=== PATIENT | female | born 1955 | race Caucasian/White ===

== ENCOUNTER 2021-03-30 12:31 | Emergency (ER) | payer MEDICARE ==
[~2021-03-30] VITALS: Ht 162.6 cm; Wt 48.1 kg
[2021-03-30] MEDS ORDERED: BENZTROPINE MESYLATE 2 MG/2 ML VIAL. IM STA (13:17)
--- NOTE | 2021-03-30 13:25 | PHYS DOC ---
Past Medical History Past Medical History: Bipolar Past Surgical History: No Surgical History Smoking Status: Never Smoker Alcohol Use: None Drug Use: None General Adult EDM: Chief Complaint: TONGUE SWELLING/INJURY HPI: HPI: 65-year-old female with a history of bipolar disorder presents to the emergency department with tongue swelling, increased salivation. She reports that she had similar symptoms in the past and was treated with Cogentin. She called her psychiatrist earlier today who told her to come to the emergency department for a shot of Cogentin. She reports that she got a shot of Haldol 2 days ago which precipitated her symptoms. She believes that she may have tardive dyskinesia or movement disorder related to antipsychotics. She denies any shortness of breath, neck swelling, fever, chills, chest pain, abdominal pain. Her blood pressure is high today but she has not taken her medication. She has her blood pressure medication at home. She has no further concerns at this time. She presents with her son who corroborates the story Review of Systems: Review of Systems: Review of systems otherwise negative except for what is mentioned in the HPI Heart Score: C/O Chest Pain: No Allergies: Allergies: Allergies Coded Allergies Type Severity Reaction Last Updated Verified aripiprazole Allergy Intermediate UNKNOWN 03/30/21 Yes carbamazepine Allergy Intermediate UNKNOWN 03/30/21 Yes codeine Allergy Intermediate UNKNOWN 03/30/21 Yes duloxetine Allergy Intermediate UNKNOWN 03/30/21 Yes lithium Allergy Intermediate UNKNOWN 03/30/21 Yes quetiapine Allergy Intermediate UNKNOWN 03/30/21 Yes red dye Allergy Intermediate UNKNOWN 03/30/21 Yes venlafaxine Allergy Intermediate UNKNOWN 03/30/21 Yes Physical Exam: PE: General: No acute distress. HEENT: Normocephalic, Normal hearing. Visual acuity grossly intact. Tongue is mildly swollen, uvula midline, airway intact and there does not appear to be any phonation abnormalities with the airway completely intact Neck: Supple, Full range of motion without tenderness. Respiratory: Airway intact, normal phonation, vocalizing. No signs of accessory muscle use or respiratory distress. Cardiovascular: Normal rate, Extremities appear well perfused. Musculoskeletal: Normal range of motion. No deformity. Ambulatory. Integumentary: No pallor, No jaundice. Neurologic: Alert, Oriented. Moves all extremities independently. Psychiatric: Cooperative Current Patient Data: Vital Signs: Vital Signs Date Time Temp Pulse Resp B/P (MAP) Pulse Ox O2 Delivery O2 Flow Rate FiO2 03/30/21 13:38 71 167/73 03/30/21 12:50 98.5 82 20 182/85 99 Room Air 98.5 Course & Med Decision Making: Course & Med Decision Making Patient was given Cogentin, Toradol as per her request. She is also given amlodipine 10 mg, her home dose for blood pressure. There is no sign of endorgan damage here today. She was discharged in stable condition. Tongue swelling did not affect the airway. She was to follow-up with her psychiatrist and primary care physician and she was given referral to neurologist for movement disorder My Orders - JOSE BURK DO Procedure Category Date Status Time Benztropine Mesylate PHA 03/30/21 Complete (Cogentin) 13:17 Ketorolac 15mg Vial PHA 03/30/21 Complete (Toradol 15mg Vial) 13:30 Amlodipine Besylate PHA 03/30/21 Complete (Norvasc) 13:21 Departure Departure Impression: Primary Impression: Extrapyramidal and movement disorder, unspecified Additional Impression: Elevated blood pressure reading Disposition: 01 HOME / SELF CARE / HOMELESS Condition: STABLE Referrals: GAVIN HATCH MD (PCP) TIMMY HEREDIA MD Patient Instructions: Manic Depression (Bipolar Disorder) Additional Instructions: Please follow-up with your psychiatrist regarding her bipolar disorder, movement disorder. You should follow-up with a neurologist regarding your movement disorder. You were seen in the emergency department and your health condition was deemed not to require admission to the hospital. It is important to realize that we can only evaluate you during the time that you are in her department. Occasionally health conditions can worsen upon leaving the emergency department. If this were to happen, please return to and allow us the opportunity to reevaluate you. It is a pleasure to take care of your health needs. Return to the ER if your symptoms worsen, do not improve, or if you develop additional symptoms that are concerning to you You were seen in the emergency department for hypertension, or high blood pressure. You need to follow up with the medicine clinic or your primary care doctor for further evaluation and treatment of your blood pressure. You should return to the ED if you develop chest pain, shortness of breath, severe headache, or any other new or concerning symptoms. We started you on a low dose of blood pressure medication, but you may need more than one medication and should have a primary doctor that can further investigate your blood pressure issues. Losing some weight and improving your diet will be helpful in reducing your blood pressure as well. JOSE BURK DO Mar 30, 2021 13:25
[2021-03-30] MEDS ORDERED: KETOROLAC 15 MG/ML VIAL. IM ONE (13:30)
[2021-03-30 14:37] VITALS: BP 179/71
== END 2021-03-30 14:45 | disposition home or self-care (01) ==
LOC: ER 12:31
DX: G25.9 Extrapyramidal and movement disorder, unspecified (principal); R03.0 Elevated blood-pressure reading, without diagnosis of hypertension; F31.9 Bipolar disorder, unspecified; Z88.5 Allergy status to narcotic agent; Z91.041 Radiographic dye allergy status; Z88.8 Allergy status to other drugs, medicaments and biological substances
CPT/HCPCS: 96372; 99285; J0515; J1885

== ENCOUNTER 2021-05-07 15:43 | Emergency (ER) | payer MEDICARE ==
[~2021-05-07] VITALS: Ht 162.6 cm; Wt 62.0 kg
[2021-05-07 15:55] VITALS: BP 182/79
--- NOTE | 2021-05-07 17:09 | PHYS DOC ---
Past Medical History Past Medical History: Bipolar Additional Past Medical Histor: TARDIVE DYSKINESIA,CHRONIC PAIN Past Surgical History: No Surgical History Additional Past Surgical Histo: NASAL RECONSTRUCTION/NO SEPTUM Smoking Status: Never Smoker Alcohol Use: None Drug Use: None General Adult EDM: Chief Complaint: NECK PAIN HPI: HPI: Patient is a 65 year old female presents emergency department complaining of stiff neck for the past 3 days. 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 Review of Systems: Review of Systems: 14 body systems of review of systems have been reviewed. See HPI for pertinent positives and negative responses, otherwise all other systems are negative, nonpertinent or noncontributory. Constitutional: Negative except as outlined in HPI above. Skin: Negative except as outlined in HPI above. Eyes: Negative except as outlined in HPI above. HENT: Negative except as outlined in HPI above. Respiratory: Negative except as outlined in HPI above. Cardiovascular: Negative except as outlined in HPI above. GI: Negative except as outlined in HPI above. : Negative except as outlined in HPI above. Musculoskeletal: Negative except as outlined in HPI above. Integument: Negative except as outlined in HPI above. Neurologic: Negative except as outlined in HPI above. Endocrine: Negative except as outlined in HPI above. Lymphatic: Negative except as outlined in HPI above. Psychiatric: Negative except as outlined in HPI above. Heart Score: C/O Chest Pain: No Risk Factors: Risk Factors: DM, Current or recent (<one month) smoker, HTN, HLP, family history of CAD, obesity. Risk Scores: Score 0 - 3: 2.5% MACE over next 6 weeks - Discharge Home Score 4 - 6: 20.3% MACE over next 6 weeks - Admit for Clinical Observation Score 7 - 10: 72.7% MACE over next 6 weeks - Early Invasive Strategies Allergies: Allergies: Allergies Coded Allergies Type Severity Reaction Last Updated Verified aripiprazole Allergy Intermediate UNKNOWN 05/07/21 Yes carbamazepine Allergy Intermediate UNKNOWN 05/07/21 Yes codeine Allergy Intermediate UNKNOWN 05/07/21 Yes duloxetine Allergy Intermediate UNKNOWN 05/07/21 Yes lithium Allergy Intermediate UNKNOWN 05/07/21 Yes quetiapine Allergy Intermediate UNKNOWN 05/07/21 Yes red dye Allergy Intermediate UNKNOWN 03/30/21 Yes venlafaxine Allergy Intermediate UNKNOWN 03/30/21 Yes Physical Exam: PE: Constitutional: Well developed, well nourished, no acute distress, non-toxic appearance. 65-year-old female in no apparent distress. HENT: Normocephalic, atraumatic. Eyes: Conjunctiva normal, no discharge. Neck: Normal range of motion, no stridor. Left-sided sternocleidomastoid muscle spasm, no midline spinal tenderness appreciated Cardiovascular: No cyanosis appreciated, distal cap refill less than 2 seconds. Lungs & Thorax: Patient is in no respiratory distress, no audible adventitious lung sounds appreciated. Abdomen: Nontender, no abnormalities noted. Skin: Warm, dry, no erythema, no rash. Back: No tenderness, no deformities. Extremities: No tenderness, no cyanosis, no clubbing, ROM intact, no edema. Neurologic: Alert and oriented X 3, normal motor function, normal sensory function, no focal deficits noted. Psychologic: Affect normal, judgement normal, mood normal. Current Patient Data: Vital Signs: Vital Signs Date Time Temp Pulse Resp B/P (MAP) Pulse Ox O2 Delivery O2 Flow Rate FiO2 05/07/21 15:55 97.9 16 182/79 (113) 97 Room Air 97.9 EKG: EKG: [] Radiology/Procedures: Radiology/Procedures: [] Course & Med Decision Making: Course & Med Decision Making Pertinent Labs and Imaging studies reviewed. (See chart for details) 65-year-old female, vital signs reviewed, presents emerged from complaint of stiff neck. Physical examination consistent with torticollis/wry neck of the left side of neck, will treat with p.o. Valium, IM Toradol, discharged home with instructions for moist heat treatments 20 minutes on 20 minutes off while awake for the next 2 to 3 days, patient has prescription for muscle relaxer from primary care provider,, patient gave verbal understanding of and is amenable to ED discharge planning. Discussed with the patient all findings and diagnostic testing as well as the need to follow-up with their primary care provider for further evaluation and treatment or return to the ED if any new or worsening symptoms. Strict return precautions were also discussed at length, the patient voiced understanding and agreement with the discharge planning. The patient was nontoxic in appearance, in no apparent distress, and hemodynamically stable at the time of disposition. Dragon Disclaimer: Dragon Disclaimer: This electronic medical record was generated, in whole or in part, using a voice recognition dictation system. Departure Departure Impression: Primary Impression: Wry neck Disposition: HOME / SELF CARE / HOMELESS Condition: GOOD Referrals: GAVIN HATCH MD (PCP) Additional Instructions: You were seen today in the emergency department for a stiff neck. You were treated today with an intramuscular injection of Toradol, a value of tablet to help relax the muscles of your neck. Please continue to take [id number] Motrin and your prescribed muscle relaxer for your neck discomfort, you may use heating pad or moist heat 20 minutes on 20 minutes off while awake. Please see your doctor for ongoing pain management. Thank you for visiting our [facility]. It was a pleasure taking care of you today in the emergency department and we appreciate you trusting us with your care. If any additional problems come up don't hesitate to return to visit us. Please follow up with your primary care provider so they can plan additional care if needed and know about the problem that you had. If symptoms worsen come back to the Emergency Department. Any concerning symptoms that start such as chest pain, shortness of air, weakness or numbness on one side of the body, running high fevers or any other concerning symptoms return to the ER. KELLY SCHMITZ APRN May 07, 2021 17:09
[2021-05-07] MEDS ORDERED: KETOROLAC 60 MG/2 ML VIAL. IM ONE (17:15)
[2021-05-07] MEDS ORDERED: diazePAM 5 MG TABLET PO ONE (17:15)
== END 2021-05-07 17:53 | disposition home or self-care (01) ==
LOC: ER 15:43
DX: M43.6 Torticollis (principal); F31.9 Bipolar disorder, unspecified; G89.29 Other chronic pain; Z88.8 Allergy status to other drugs, medicaments and biological substances; Z91.041 Radiographic dye allergy status; Z88.5 Allergy status to narcotic agent
CPT/HCPCS: 96372; 99283; J1885

== ENCOUNTER 2021-07-26 12:00 | Emergency (ER) | payer MEDICARE ==
[~2021-07-26] VITALS: Ht 162.6 cm; Wt 45.8 kg
--- NOTE | 2021-07-26 12:15 | PHYS DOC ---
Past Medical History Past Medical History: Bipolar Additional Past Medical Histor: TARDIVE DYSKINESIA,CHRONIC PAIN Past Surgical History: No Surgical History Additional Past Surgical Histo: NASAL RECONSTRUCTION/NO SEPTUM Smoking Status: Never Smoker Alcohol Use: None Drug Use: None General Adult EDM: Chief Complaint: COUGH HPI: HPI: Patient is a 66 year old who presents with reported shortness of breath, chronic cough, denies sputum changes, denies hemoptysis. She also reports chronic back pain. She reports that she is out of her muscle relaxers. She denies fevers or chills. She denies abdominal pain, nausea, vomiting. She denies chest pain. She denies dyspnea with exertion. She reports that she has been "fired" from multiple facilities throughout the [place] area, by specialist as well as primary care physicians. She has reportedly been banned from these offices, secondary to aggressive and threatening behavior. She denies any recent trauma or injury. She denies lower extremity pain or swelling. She continues to smoke tobacco. She does have a history of COPD. 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 She currently is requesting information to establish care with a new primary care physician. She reports that she usually takes tizanidine for her chronic back pain. Review of Systems: Review of Systems: Constitutional: Denies fever or chills. [] Eyes: Denies change in visual acuity. [] HENT: She reports having a chronic sore throat Respiratory: Chronic and unchanged cough, denies hemoptysis. Chronic dyspnea Cardiovascular: Denies chest pain or edema. [] GI: Denies abdominal pain, nausea, vomiting Musculoskeletal: Chronic and unchanged back pain. Integument: Denies rash. [] Neurologic: Denies headache, focal weakness or sensory changes. [] Psychiatric: Chronic anxiety and mood disturbance. [] Heart Score: C/O Chest Pain: No Risk Factors: Risk Factors: DM, Current or recent (<one month) smoker, HTN, HLP, family history of CAD, obesity. Risk Scores: Score 0 - 3: 2.5% MACE over next 6 weeks - Discharge Home Score 4 - 6: 20.3% MACE over next 6 weeks - Admit for Clinical Observation Score 7 - 10: 72.7% MACE over next 6 weeks - Early Invasive Strategies Allergies: Allergies: Allergies Coded Allergies Type Severity Reaction Last Updated Verified aripiprazole Allergy Intermediate UNKNOWN 05/07/21 Yes carbamazepine Allergy Intermediate UNKNOWN 05/07/21 Yes codeine Allergy Intermediate UNKNOWN 05/07/21 Yes duloxetine Allergy Intermediate UNKNOWN 05/07/21 Yes lithium Allergy Intermediate UNKNOWN 05/07/21 Yes quetiapine Allergy Intermediate UNKNOWN 05/07/21 Yes red dye Allergy Intermediate UNKNOWN 03/30/21 Yes venlafaxine Allergy Intermediate UNKNOWN 03/30/21 Yes Physical Exam: PE: Constitutional: Well developed, well nourished, no acute distress, non-toxic appearance. She is pacing rapidly all over the ED room, briskly getting up and down from the ED gurney, restless appearing, anxious, hyperverbal, she is not ill-appearing. HENT: Normocephalic, atraumatic, oropharynx is patent and clear, mucous membranes are moist. Eyes: Sclera are clear, conjunctival clear Neck: Achy yet is midline, no tenderness, no JVD Cardiovascular:Heart rate regular rhythm, well-perfused, no edema Lungs & Thorax: Bilateral breath sounds clear to auscultation, no rales, rhonchi or wheezes, no tachypnea, no retractions, no stridor, no distress. Abdomen: Bowel sounds normal, soft, no tenderness, no masses, no pulsatile masses. [] Skin: Warm, dry, no erythema, no rash. [] Back: No tenderness, no CVA tenderness. [] Extremities: No tenderness, no cyanosis, no clubbing, ROM intact, no edema. No calf tenderness Neurologic: Alert and oriented X 3, normal motor function, normal sensory function, no focal deficits noted. [] Psychologic: Anxious, frenetic, pacing, hyperverbal, pressured speech. She denies SI or HI. [] EKG: EKG: [] Radiology/Procedures: Radiology/Procedures: IMAGING REPORT Signed PATIENT: WILLIE FELDER ACCOUNT: [id number] : 1955 LOCATION: ER AGE: 66 SEX: F EXAM STATUS: PRE ER ORD. PHYSICIAN: PATO HERNANDEZ DO REASON: cough PROCEDURE: PORTABLE CHEST 1V EXAM: Chest, single view. HISTORY: Cough. COMPARISON: None. FINDINGS: A frontal view of the chest obtained. There is hyperinflation likely due to emphysema. There is a 1.3 cm focal opacity overlying the left upper lobe. There is no consolidation, pleural effusion or pneumothorax. The heart is normal in size. There is a healed left eighth rib fracture. IMPRESSION: 1. Focal opacity overlying the left upper lobe. This may be due to a nodule or nodular infiltrate. Short-term sonographic or CT follow-up is recommended. 2. Suspected emphysema. Electronically signed by: Dorene Pacheco MD (07/26/2021 12:39 PM) [id number] DICTATED and SIGNED BY: DORENE PACHECO MD DATE: 07/26/21 [id number] Course & Med Decision Making: Course & Med Decision Making Pertinent Labs and Imaging studies reviewed. (See chart for details) The findings, differential diagnosis and plan of care are discussed with her. The patient demanded a "shot" for muscle relaxer. I did order Norflex for her. I ordered p.o. Tessalon for cough. I did discuss the x-ray findings, she is to follow-up for this left lobe area, likely nodule. She clinically does not have pneumonia. She manifests no evidence of distress or hypoxia. No current indication for further imaging, invasive exams or admission. I told her to contact and primary care physician resources to establish care, she should continue to see her psychiatrist and counselors as scheduled. Return precautions are given. Aureliano Disclaimer: Aureliano Disclaimer: This electronic medical record was generated, in whole or in part, using a voice recognition dictation system. Departure Departure Impression: Primary Impression: Cough Additional Impression: Chronic back pain Disposition: 01 HOME / SELF CARE / HOMELESS Condition: STABLE Referrals: UNKNOWN PCP NAME (PCP) Patient Instructions: Back Pain, Adult, Cough, Adult, Smoking Cessation Additional Instructions: Please continue using your inhalers as needed. Take your other regularly prescribed medications as directed. Please establish care with a primary care physician. You are given outpatient resources for this purpose. Return for any acute, emergency medical condition, such as acute injury or trauma, if your cough or shortness of breath symptoms are changed. You do not need steroids at this time. There is no need for antibiotics at this time. Scripts Tizanidine Hcl (TIZANIDINE HCL) 4 Mg Tablet 1 TAB PO BID for pain, #20 TAB Prov: PATO HERNANDEZ DO 07/26/21 Diclofenac Potassium (DICLOFENAC POTASSIUM) 50 Mg Tablet 1 TAB PO BID, #20 TAB 0 Refills Prov: PATO HERNANDEZ DO 07/26/21 PATO HERNANDEZ DO Jul 26, 2021 12:15
[2021-07-26] MEDS ORDERED: ORPHENADRINE CITRATE 60 MG/2 ML VIAL. IM ONE (12:30)
[2021-07-26] MEDS ORDERED: BENZONATATE 100 MG CAPSULE. PO ONE (12:30)
--- NOTE | 2021-07-26 12:42 | RAD ---
EXAM: Chest, single view. HISTORY: Cough. COMPARISON: None. FINDINGS: A frontal view of the chest obtained. There is hyperinflation likely due to emphysema. Ther e is a 1.3 cm focal opacity overlying the left upper lobe. There is no consolidation, pleural effusio n or pneumothorax. The heart is normal in size. There is a healed left eighth rib fracture. IMPRESSION: 1. Focal opacity overlying the left upper lobe. This may be due to a nodule or nodular infiltrate. Sh ort-term sonographic or CT follow-up is recommended. 2. Suspected emphysema. Electronically signed by: Dorene Pacheco MD (07/26/2021 12:39 PM) [id number]
[2021-07-26 14:40] VITALS: BP 165/74
[2021-07-26] MEDS ORDERED: DICL50TA2 PO (14:41)
[2021-07-26] MEDS ORDERED: TIZA-75 PO (14:41)
== END 2021-07-26 15:00 | disposition home or self-care (01) ==
LOC: ER 12:00
DX: R05.9 Cough, unspecified (principal); R06.02 Shortness of breath; G89.29 Other chronic pain; M54.9 Dorsalgia, unspecified; F31.9 Bipolar disorder, unspecified; J44.9 Chronic obstructive pulmonary disease, unspecified; Z88.5 Allergy status to narcotic agent; Z91.041 Radiographic dye allergy status; Z88.8 Allergy status to other drugs, medicaments and biological substances
CPT/HCPCS: 71045; 96372; 99284; J2360

== ENCOUNTER 2021-08-02 19:35 | Emergency (ER) | payer MEDICARE ==
[~2021-08-02 19:35] MED LIST: DICL50TA2 PO; TIZA-75 PO
== END 2021-08-03 01:59 | disposition left against medical advice (07) ==
LOC: ER 19:35
DX: R06.09 Other forms of dyspnea (principal); Z53.21 Procedure and treatment not carried out due to patient leaving prior to being seen by health care provider

== ENCOUNTER 2021-08-03 03:08 | Emergency (ER) | payer MEDICARE ==
[~2021-08-03] VITALS: Ht 162.6 cm; Wt 70.0 kg
--- NOTE | 2021-08-03 04:57 | PHYS DOC ---
Past Medical History Past Medical History: Bipolar Additional Past Medical Histor: BLOOD PRESSURE PROBLEMS, THROAT, PAIN, PTSD, NECK INJURY Past Surgical History: Other Additional Past Surgical Histo: UNKNOWN Smoking Status: Never Smoker Alcohol Use: None Drug Use: None General Adult EDM: Chief Complaint: HYPERTENSION HPI: HPI: Patient is a 66 year old FEMALE presents for evaluation of low blood pressure. Patient states yesterday morning (08/02) approximately 0800s she took her blood pressure and noted it to be 90's systolic. Patient called 911-- when ems arrived patients blood pressure 170's systolic. Patient states she went to [facility] ER and also to her pain management Doctor. On exam patient is in no acute distress. Her blood pressure is in the 150's systolic. Patient is requesting a shot of norflex- for her chronic muscle spasms. Review of Systems: Review of Systems: Constitutional: Denies fever or chills. [] Eyes: Denies change in visual acuity. [] HENT: Denies nasal congestion or sore throat. [] Respiratory: Denies cough or shortness of breath. [] Cardiovascular: Denies chest pain or edema. [] GI: Denies abdominal pain, nausea, vomiting, bloody stools or diarrhea. [] : Denies dysuria. [] Musculoskeletal: Denies back pain or joint pain. [] Integument: Denies rash. [] Neurologic: Denies headache, focal weakness or sensory changes. [] Endocrine: Denies polyuria or polydipsia. [] Lymphatic: Denies swollen glands. [] Psychiatric: Denies depression or anxiety. [] Heart Score: C/O Chest Pain: N/A Risk Factors: Risk Factors: DM, Current or recent (<one month) smoker, HTN, HLP, family history of CAD, obesity. Risk Scores: Score 0 - 3: 2.5% MACE over next 6 weeks - Discharge Home Score 4 - 6: 20.3% MACE over next 6 weeks - Admit for Clinical Observation Score 7 - 10: 72.7% MACE over next 6 weeks - Early Invasive Strategies Allergies: Allergies: Allergies Coded Allergies Type Severity Reaction Last Updated Verified aripiprazole Allergy Intermediate UNKNOWN 05/07/21 Yes carbamazepine Allergy Intermediate UNKNOWN 05/07/21 Yes codeine Allergy Intermediate UNKNOWN 05/07/21 Yes duloxetine Allergy Intermediate UNKNOWN 05/07/21 Yes lithium Allergy Intermediate UNKNOWN 05/07/21 Yes quetiapine Allergy Intermediate UNKNOWN 05/07/21 Yes red dye Allergy Intermediate UNKNOWN 03/30/21 Yes venlafaxine Allergy Intermediate UNKNOWN 03/30/21 Yes Physical Exam: PE: Constitutional: Well developed, well nourished, no acute distress, non-toxic appearance. [] HENT: Normocephalic, atraumatic, bilateral external ears normal, oropharynx moist, no oral exudates, nose normal. [] Eyes: PERRLA, EOMI, conjunctiva normal, no discharge. [] Neck: Normal range of motion, no tenderness, supple, no stridor. [] Cardiovascular:Heart rate regular rhythm, no murmur [] Lungs & Thorax: Bilateral breath sounds clear to auscultation [] Abdomen: Bowel sounds normal, soft, no tenderness, no masses, no pulsatile masses. [] Skin: Warm, dry, no erythema, no rash. [] Back: No tenderness, no CVA tenderness. [] Extremities: No tenderness, no cyanosis, no clubbing, ROM intact, no edema. [] Neurologic: Alert and oriented X 3, normal motor function, normal sensory function, no focal deficits noted. [] Psychologic: Affect normal, judgement normal, mood normal. [] Current Patient Data: Vital Signs: Vital Signs Date Time Temp Pulse Resp B/P (MAP) Pulse Ox O2 Delivery O2 Flow Rate FiO2 08/03/21 04:35 97.7 66 18 158/68 (98) 97 Room Air 97.7 EKG: EKG: [] Radiology/Procedures: Radiology/Procedures: [] Course & Med Decision Making: Course & Med Decision Making Pertinent Labs and Imaging studies reviewed. (See chart for details) [] Dragon Disclaimer: Dragon Disclaimer: This electronic medical record was generated, in whole or in part, using a voice recognition dictation system. Departure Departure Impression: Primary Impression: Muscle spasm Disposition: 01 HOME / SELF CARE / HOMELESS Condition: STABLE Referrals: KELLY FOOTE MD (PCP) Patient Instructions: Hypotension, Spasticity FRANCIS ANDERSON DO Aug 03, 2021 04:57
[2021-08-03] MEDS ORDERED: ORPHENADRINE CITRATE 60 MG/2 ML VIAL. IM ONE (05:00)
[2021-08-03 05:10] VITALS: BP 156/69
== END 2021-08-03 05:13 | disposition home or self-care (01) ==
LOC: ER 03:08
DX: M62.838 Other muscle spasm (principal); I95.9 Hypotension, unspecified; F31.9 Bipolar disorder, unspecified; Z88.5 Allergy status to narcotic agent; Z91.041 Radiographic dye allergy status; Z88.8 Allergy status to other drugs, medicaments and biological substances
CPT/HCPCS: 96372; 99283; J2360

== ENCOUNTER 2021-08-27 16:23 | Emergency (ER) | payer MEDICARE ==
[~2021-08-27] VITALS: Ht 157.5 cm; Wt 62.0 kg
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
[2021-08-27] MEDS ORDERED: LIDOCAINE (700MG/PATCH) PATCH. TD ONE (17:00)
[2021-08-27] MEDS ORDERED: ORPHENADRINE CITRATE 60 MG/2 ML VIAL. IM ONE (17:00)
[2021-08-27] MEDS ORDERED: KETOROLAC 30 MG/ML VIAL. IM ONE (17:00)
[2021-08-27 17:48] VITALS: BP 158/70
== END 2021-08-27 17:50 | disposition home or self-care (01) ==
LOC: ER 16:23
DX: G89.29 Other chronic pain (principal); M54.50 Low back pain, unspecified; F31.9 Bipolar disorder, unspecified; Z88.5 Allergy status to narcotic agent; Z91.041 Radiographic dye allergy status; Z88.8 Allergy status to other drugs, medicaments and biological substances
CPT/HCPCS: 96372; 99284; J1885; J2360

== ENCOUNTER 2021-10-29 12:02 | Emergency (ER) | payer MEDICARE ==
[~2021-10-29] VITALS: Ht 162.6 cm; Wt 56.8 kg
[2021-10-29] MEDS ORDERED: methylPREDNISolone SOD SUCC PF 125 MG/2 ML VIAL. IV ONE (13:30)
[2021-10-29] MEDS ORDERED: ORPHENADRINE CITRATE 60 MG/2 ML VIAL. IM ONE (13:30)
--- NOTE | 2021-10-29 14:25 | RAD ---
XR CHEST 1V History: Reason: cough, soa Comparison: July 26, 2021 Findings: Hyperinflation with emphysematous changes. No consultation or pleural effusion. No pneumothorax. Calc ified right midlung pulmonary nodule, likely prior granulous disease, unchanged compared to prior. Impression: 1. Hyperinflation with emphysematous changes. No new consolidation. Electronically signed by: Aram Sebastian DO (10/29/2021 2:22 PM) [id number]
--- NOTE | 2021-10-29 14:26 | RAD ---
PQRS Compliance Statement: One or more of the following individualized dose reduction techniques were utilized for this examinat ion: 1. Automated exposure control 2. Adjustment of the mA and/or kV according to patient size 3. Use of iterative reconstruction technique CT head and cervical spine without contrast 10/29/2021 1:27 PM INDICATION: Concussion, neck pain COMPARISON: None available TECHNIQUE: Multiple axial CT images of the head were obtained from skull base through the vertex with out intravenous contrast. Multiple axial CT images of the cervical spine were obtained without intrav enous contrast. Coronal and sagittal reformats are provided. FINDINGS: Head: Ventricles, sulci and basal cisterns are within normal limits. There is no hydrocephalus. Weber-white matter differentiation is normal. There is no acute intracranial hemorrhage. There is no mass, mass e ffect or midline shift. Posterior fossa is normal in appearance. Visualized portions of the orbits are normal. Paranasal sinuses are well aerated. Mastoid air cells a re well aerated. Scalp and calvaria are normal. Cervical spine: Alignment of the cervical spine is normal. Skull base is intact. Craniocervical junction is normal in appearance. Atlantoaxial articulation is normal. Vertebral body heights are maintained without evidence for acute fracture. Mild facet arthropathy. No significant osseous neural foraminal stenosis. No significant osseous spin al canal stenosis. Transverse foramen are intact. There is no prevertebral soft tissue swelling. Thyroid gland is normal in appearance. Visualized port ions of the lung apices are normal without evidence for suspicious pulmonary nodule or infiltrate. Ca lcified plaque identified at the carotid bifurcations. IMPRESSION: 1. No acute intracranial hemorrhage. 2. No acute fracture or malalignment of the cervical spine. Electronically signed by: Madhuri Polanco MD (10/29/2021 2:23 PM) [id number]
[2021-10-29] MEDS ORDERED: diazePAM 5 MG TABLET ONE (14:34)
[2021-10-29] MEDS ORDERED: KETOROLAC 30 MG/ML VIAL. ONE (14:34)
[2021-10-29 14:38] LABS: CALCIUM 9.7 mg/dL (8.5-10.1); CREATININE 0.9 mg/dL (0.6-1.0); GFR 62.6; POTASSIUM 4.4 mmol/L (3.5-5.1)
[2021-10-29 14:39] VITALS: BP 165/90
[2021-10-29 14:44] LABS: ALBUMIN 4.2 g/dL (3.4-5.0); ALBUMIN/GLOBULIN RATIO 1.3 (1.0-1.7); TOTAL BILIRUBIN 0.3 mg/dL (0.2-1.0); TOTAL PROTEIN 7.4 g/dL (6.4-8.2)
--- NOTE | 2021-10-29 15:11 | PHYS DOC ---
Past Medical History Past Medical History: Bipolar Additional Past Medical Histor: BLOOD PRESSURE PROBLEMS, THROAT, PAIN, PTSD, NECK INJURY Past Surgical History: No Surgical History Additional Past Surgical Histo: patient states 'a ton of stuff, look it up' Smoking Status: Current Some Day Smoker Alcohol Use: None Drug Use: None General Adult EDM: Chief Complaint: MULTIPLE COMPLAINTS HPI: HPI: Patient is a 66-year-old female who presents to the emergency department for multiple complaints. 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 She reports that she is very sensitive to smells and she had some fume exposures on Monday and Monday and she was around someone on Monday wearing strong cologne. Patient has been taking Tessalon Perles, azelastine and Singulair for these symptoms. Patient is reporting a productive cough with nasal congestion/drainage and postnasal drainage. Patient reports that it feels like she has swollen glands. Patient reports chronic neck pain. She reports that she was told she has muscle spasms in her neck and she takes Zanaflex for this. She denies any new injuries. She is to have an MRI of her neck performed. She reports that she has not had any recent CT imaging. Patient denies any fevers, vomiting. She has been seen multiple times for these chronic symptoms at [facility] and was at [place] yesterday. Patient is very demanding and uncooperative with care. Review of Systems: Review of Systems: Constitutional: See HPI HENT: See HPI Respiratory: See HPI Cardiovascular: See HPI GI: See HPI Musculoskeletal: See HPI Lymphatic: See HPI Heart Score: C/O Chest Pain: No Risk Factors: Risk Factors: DM, Current or recent (<one month) smoker, HTN, HLP, family history of CAD, obesity. Risk Scores: Score 0 - 3: 2.5% MACE over next 6 weeks - Discharge Home Score 4 - 6: 20.3% MACE over next 6 weeks - Admit for Clinical Observation Score 7 - 10: 72.7% MACE over next 6 weeks - Early Invasive Strategies Current Medications: Current Medications Medications (Trade) Dose Ordered Sig/Nate Start Time Stop Time Status Last Admin Dose Admin Amlodipine Besylate (Norvasc) 5 mg 1X ONCE 10/29/21 13:30 10/29/21 13:31 DC Diazepam (Valium) 5 mg STK-MED ONCE 10/29/21 14:34 10/29/21 14:34 DC Ketorolac Tromethamine (Toradol 30mg Vial) 30 mg STK-MED ONCE 10/29/21 14:34 10/29/21 14:34 DC Methylprednisolone Sodium Succinate (SOLU-Medrol 125MG VIAL) 125 mg 1X ONCE 10/29/21 13:30 10/29/21 13:31 DC Orphenadrine Citrate (Norflex) 60 mg 1X ONCE 10/29/21 13:30 10/29/21 13:31 DC Allergies: Allergies: Allergies Coded Allergies Type Severity Reaction Last Updated Verified aripiprazole Allergy Intermediate UNKNOWN 08/27/21 Yes carbamazepine Allergy Intermediate UNKNOWN 08/27/21 Yes codeine Allergy Intermediate UNKNOWN 08/27/21 Yes duloxetine Allergy Intermediate UNKNOWN 08/27/21 Yes lithium Allergy Intermediate UNKNOWN 08/27/21 Yes quetiapine Allergy Intermediate UNKNOWN 08/27/21 Yes red dye Allergy Intermediate UNKNOWN 03/30/21 Yes venlafaxine Allergy Intermediate UNKNOWN 03/30/21 Yes Physical Exam: PE: Constitutional: Well developed, well nourished, no acute distress, non-toxic appearance. [] HENT: Normocephalic, atraumatic, bilateral external ears normal, oropharynx moist, post nasal drainage noted, no tonsillar enlargement, no tonsillar exudate, uvula midline, no trismus, no phonation changes, patient maintaining secretions, no oral exudates, nose normal. [] Eyes: PERRL, EOMI, conjunctiva normal, no discharge. [] Neck: Normal range of motion, no tenderness, no palpable lymphadenopathy, supple, no stridor. [] Cardiovascular:Heart rate regular rhythm, no murmur [] Lungs & Thorax: Bilateral breath sounds clear to auscultation [] Abdomen: soft, no tenderness, no masses, no pulsatile masses. [] Skin: Warm, dry, no erythema, no rash. [] Back: Normal ROM Extremities: No tenderness, no cyanosis, no clubbing, ROM intact, no edema. [] Neurologic: Alert and oriented X 3, normal motor function, normal sensory function, no focal deficits noted. [] Psychologic: Affect normal, judgement normal, mood normal. [] Current Patient Data: Labs: Laboratory Tests Test 3/25/22 14:16 Sodium Level 141 mmol/L (136-145) Potassium Level 4.4 mmol/L (3.5-5.1) Chloride Level 106 mmol/L (98-107) Carbon Dioxide Level 27 mmol/L (21-32) Anion Gap 8 (6-14) Blood Urea Nitrogen 24 mg/dL (7-20) H Creatinine 0.9 mg/dL (0.6-1.0) Estimated GFR (Cockcroft-Gault) 62.6 BUN/Creatinine Ratio 27 (6-20) H Glucose Level 96 mg/dL (70-99) Calcium Level 9.7 mg/dL (8.5-10.1) Total Bilirubin 0.3 mg/dL (0.2-1.0) Aspartate Amino Transferase (AST) 24 U/L (15-37) Alanine Aminotransferase (ALT) 27 U/L (14-59) Alkaline Phosphatase 114 U/L (46-116) Troponin I High Sensitivity 4 ng/L (4-50) Total Protein 7.4 g/dL (6.4-8.2) Albumin 4.2 g/dL (3.4-5.0) Albumin/Globulin Ratio 1.3 (1.0-1.7) Laboratory Tests 10/29/21 14:16 Vital Signs: Vital Signs Date Time Temp Pulse Resp B/P (MAP) Pulse Ox O2 Delivery O2 Flow Rate FiO2 10/29/21 12:48 79 22 212/199 (203) 99 Room Air EKG: EKG: [] Radiology/Procedures: Radiology/Procedures: []PROCEDURE: CT HEAD AND CERVICAL SPINE [facility] Compliance Statement: One or more of the following individualized dose reduction techniques were utilized for this examination: 1. Automated exposure control 2. Adjustment of the mA and/or kV according to patient size 3. Use of iterative reconstruction technique CT head and cervical spine without contrast 10/29/2021 1:27 PM INDICATION: Concussion, neck pain COMPARISON: None available TECHNIQUE: Multiple axial CT images of the head were obtained from skull base through the vertex without intravenous contrast. Multiple axial CT images of the cervical spine were obtained without intravenous contrast. Coronal and sagittal reformats are provided. FINDINGS: Head: Ventricles, sulci and basal cisterns are within normal limits. There is no hydrocephalus. Weber-white matter differentiation is normal. There is no acute intracranial hemorrhage. There is no mass, mass effect or midline shift. Posterior fossa is normal in appearance. Visualized portions of the orbits are normal. Paranasal sinuses are well aerated. Mastoid air cells are well aerated. Scalp and calvaria are normal. Cervical spine: Alignment of the cervical spine is normal. Skull base is intact. Craniocervical junction is normal in appearance. Atlantoaxial articulation is normal. Vertebral body heights are maintained without evidence for acute fracture. Mild facet arthropathy. No significant osseous neural foraminal stenosis. No significant osseous spinal canal stenosis. Transverse foramen are intact. There is no prevertebral soft tissue swelling. Thyroid gland is normal in appearance. Visualized portions of the lung apices are normal without evidence for suspicious pulmonary nodule or infiltrate. Calcified plaque identified at the carotid bifurcations. IMPRESSION: 1. No acute intracranial hemorrhage. 2. No acute fracture or malalignment of the cervical spine. Electronically signed by: Jad Richmond MD (10/29/2021 2:23 PM) [id number] DICTATED and SIGNED BY: JAD RICHMOND MD DATE: 10/29/21 141 PROCEDURE: PORTABLE CHEST 1V XR CHEST 1V History: Reason: cough, soa Comparison: July 26, 2021 Findings: Hyperinflation with emphysematous changes. No consultation or pleural effusion. No pneumothorax. Calcified right midlung pulmonary nodule, likely prior granu lous disease, unchanged compared to prior. Impression: 1. Hyperinflation with emphysematous changes. No new consolidation. Electronically signed by: Aram Sebastian DO (10/29/2021 2:22 PM) [id number] DICTATED and SIGNED BY: ARAM SEBASTIAN DO DATE: 10/29/21 1421 Course & Med Decision Making: Course & Med Decision Making Pertinent Labs and Imaging studies reviewed. (See chart for details) Patient presents to the emergency department for multiple chronic complaints. Patient reports that she has a costochondritis-like inflammatory disorder and experiences rib pain. She also reports chronic postnasal drainage, nasal conges tion and drainage and cough. She is also reporting chronic neck spasms. Patient is already taking appropriate medications to treat these issues at home. She has been seen multiple times in multiple ERs for the symptoms. Patient is uncooperative with physical exam and is refusing to let me examine her throat but then is agreeable. Patient is already taking ProAir, azelastine, Singulair, Zanaflex. Her blood pressures elevated in the emergency department she takes 5 mg of amlodipine but has not taken that. Patient was given her home dose of amlodipine in the emergency department today. Work-up in the ER consisted of blood work including troponin, EKG, chest x-ray, CT imaging of head neck. Patient was given a dose of orphenadrine and a steroid. She did refuse the orphenadrine. She is requesting Toradol and p.o. Valium which was given. Patient's chest x-ray shows emphysematous changes. As she is complaining of increased sputum production, she will be discharged home with a Z-Cornel. Patient's blood work was unremarkable. The CT scan of her head neck showed no acute findings. Patient's blood pressure has improved while in the emergency department. She is advised to continue to use her ProAir and Singulair. She be advised to take Mucinex [id number]. She will be discharged home with steroid. I discussed with patient all findings and diagnostic testing as well as the need to follow-up with PCP for further evaluation and treatment or return to the ER if any new or worsening symptoms. Strict return precautions were also discussed at length. Patient voiced understanding and agreement with the plan. Patient is hemodynamically stable at the time of disposition. Aureliano Disclaimer: Aureliano Disclaimer: This electronic medical record was generated, in whole or in part, using a voice recognition dictation system. Departure Departure Impression: Primary Impression: Chronic neck pain Additional Impressions: Post-nasal drip Cough Disposition: HOME / SELF CARE / HOMELESS Condition: GOOD Referrals: KELLY FOOTE MD (PCP) Patient Instructions: Costochondritis Additional Instructions: You were seen in the emergency department today for multiple complaints. For your increased sputum production, increase your fluids as this will thin your secretions and you can take Mucinex [id number]. Continue to take the medications that are prescribed for you at home. Continue to use your albuterol inhaler as needed for shortness of breath. For your chronic neck spasms, take Zanaflex. You are being discharged home with a steroid to take. Follow-up with your primary care provider tomorrow regarding your ER visit. Return to the emergency department if you develop increased shortness of breath, high fevers refractory to treatment, intractable nausea or vomiting, weakness or any new or worsening concerns. Scripts Prednisone (PREDNISONE) 20 Mg Tablet 2 TAB PO DAILY for 5 Days, #10 TAB 0 Refills Prov: YINKA HARGROVE APRN 10/29/21 Azithromycin (AZITHROMYCIN TABLET) 250 Mg Tablet 1 PKG PO UD for 5 Days, #6 TAB 0 Refills 2 the first day followed by 1 for days 2-5 Prov: YINKA HARGROVE APRN 10/29/21 YINKA HARGROVE APRN Oct 29, 2021 15:11
[2021-10-29] MEDS ORDERED: PRED20TA PO (15:44)
[2021-10-29] MEDS ORDERED: AZIT250T6 PO (15:44)
[2021-10-29 20:59] LABS: BASO % 0 % (0-3); EOS # 0.5 x10^3/uL (0.0-0.7); EOS % 7 % (0-3); HEMATOCRIT 38.3 % (36.0-47.0); HEMOGLOBIN 12.6 g/dL (12.0-15.5); LYMPH # 1.9 x10^3/uL (1.0-4.8); LYMPH % 27 % (24-48); MEAN CORPUSCULAR HEMOGLOBIN 31 pg (25-35); MEAN CORPUSCULAR HGB CONC 33 g/dL (31-37); MEAN CORPUSCULAR VOLUME 92 fL (79-100); MONO # 0.4 x10^3/uL (0.0-1.1); MONO % 5 % (0-9); NEUT # 4.4 x10^3/uL (1.8-7.7); NEUT % 61 % (31-73); PLATELET COUNT 335 x10^3/uL (140-400); RED BLOOD COUNT 4.14 x10^6/uL (3.50-5.40); RED CELL DISTRIBUTION WIDTH 14.2 % (11.5-14.5); WHITE BLOOD COUNT 7.3 x10^3/uL (4.0-11.0)
--- NOTE | 2021-10-30 01:00 | EKG ---
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
== END 2021-10-29 16:01 | disposition home or self-care (01) ==
LOC: ER 12:02
DX: M54.2 Cervicalgia (principal); G89.29 Other chronic pain; R09.82 Postnasal drip; R05.9 Cough, unspecified; F31.9 Bipolar disorder, unspecified; Z88.5 Allergy status to narcotic agent; Z91.041 Radiographic dye allergy status; Z88.8 Allergy status to other drugs, medicaments and biological substances
CPT/HCPCS: 36415; 70450; 71045; 72125; 80053; 84484; 85025; 93005; 99285-25

== ENCOUNTER 2021-11-09 10:37 | Emergency (ER) | payer MEDICARE ==
[~2021-11-09] VITALS: Ht 160 cm; Wt 44.6 kg
[~2021-11-09 10:37] MED LIST changes: +AZIT250T6 PO; +PRED20TA PO
--- NOTE | 2021-11-09 10:58 | PHYS DOC ---
Past Medical History Past Medical History: Bipolar Additional Past Medical Histor: PT WOULD NOT GIVE Past Surgical History: No Surgical History Additional Past Surgical Histo: UNKNOWN Smoking Status: Current Some Day Smoker Alcohol Use: None Drug Use: None Adult General Chief Complaint Chief Complaint: SHORTNESS OF BREATH HPI HPI Patient is a 66 year old female presenting to the emergency department for evaluation of innumerable number of complaints. After I walked in the room she talked for at least 3 minutes straight going from complaint to complaint and possible related activities. I had to cut her off at one point and tell her that I needed to start asking her questions about individual complaints. She did not want to stop rather she continue to list complaints and I told her I could not keep track of all of her complaints or delve into any of them deeper if she would not stop talking. She started off her complaints by saying that she was exposed to a toxic disinfectant at her dentist office which is making her throat close and this exposure was 1 week ago and now she has costochondritis and she told me she is having MRIs for concussions but has not had them yet and then she told me that she only takes her blood pressure medi cine when she needs to take it and that her blood pressure was low this morning so she did not take it but her blood pressure was elevated here and now she wants to take her blood pressure medication. When trying to ask review of system questions she says yes to all questions. She is obviously having a panic attack and I told her that appears to be her primary issue at this time that she cannot calm herself down and she agreed that she is having a panic attack but is from all of her muscle spasms. She is anxious but nontoxic with normal vital signs other than the initial hypertension noted. Review of Systems Review of Systems Patient says yes to all review of systems questions All other systems were reviewed and found to be within normal limits, except as documented in this note. Current Medications Current Medications Current Medications Medications (Trade) Dose Ordered Sig/Nate Start Time Stop Time Status Last Admin Dose Admin Amlodipine Besylate (Norvasc) 10 mg 1X ONCE 11/09/21 11:00 11/09/21 11:02 DC 11/09/21 11:33 10 MG Diazepam (Valium) 5 mg 1X ONCE 11/09/21 11:45 11/09/21 11:46 DC 11/09/21 12:08 5 MG Ketorolac Tromethamine (Toradol 15mg Vial) 15 mg 1X ONCE 11/09/21 11:00 11/09/21 11:02 DC 11/09/21 11:32 15 MG Lorazepam (Ativan Inj) 1 mg 1X ONCE 11/09/21 11:00 11/09/21 11:02 DC Ondansetron HCl (Zofran) 4 mg 1X ONCE 11/09/21 11:00 11/09/21 11:02 DC 11/09/21 11:31 4 MG Allergies Allergies Allergies Coded Allergies Type Severity Reaction Last Updated Verified aripiprazole Allergy Intermediate UNKNOWN 11/09/21 Yes carbamazepine Allergy Intermediate UNKNOWN 11/09/21 Yes codeine Allergy Intermediate UNKNOWN 11/09/21 Yes duloxetine Allergy Intermediate UNKNOWN 11/09/21 Yes lithium Allergy Intermediate UNKNOWN 11/09/21 Yes quetiapine Allergy Intermediate UNKNOWN 11/09/21 Yes red dye Allergy Intermediate UNKNOWN 03/30/21 Yes venlafaxine Allergy Intermediate UNKNOWN 03/30/21 Yes Physical Exam Physical Exam Constitutional: Well developed, well nourished, no acute distress, non-toxic appearance, anxious and hyperverbal HENT: Normocephalic, atraumatic, bilateral external ears normal, oropharynx moist, no oral exudates, nose normal. [] Eyes: PERRLA, EOMI, conjunctiva normal, no discharge. [] Neck: Normal range of motion, no tenderness, supple, no stridor. [] Cardiovascular:Heart rate regular rhythm, no murmur [] Lungs & Thorax: Bilateral breath sounds clear to auscultation [] Abdomen: Bowel sounds normal, soft, no tenderness, no masses, no pulsatile masses. [] Skin: Warm, dry, no erythema, no rash. [] Back: No tenderness, no CVA tenderness. [] Extremities: No tenderness, no cyanosis, no clubbing, ROM intact, no edema. [] Neurologic: Alert and oriented X 3, normal motor function, normal sensory function, no focal deficits noted. [] Current Patient Data Vital Signs Vital Signs Date Time Temp Pulse Resp B/P (MAP) Pulse Ox O2 Delivery O2 Flow Rate FiO2 11/09/21 11:33 80 164/101 11/09/21 10:40 97.8 16 95 97.8 Lab Values Laboratory Tests Test 11/09/21 11:00 White Blood Count 13.8 x10^3/uL (4.0-11.0) H Red Blood Count 4.48 x10^6/uL (3.50-5.40) Hemoglobin 13.4 g/dL (12.0-15.5) Hematocrit 41.5 % (36.0-47.0) Mean Corpuscular Volume 93 fL (79-100) Mean Corpuscular Hemoglobin 30 pg (25-35) Mean Corpuscular Hemoglobin Concent 32 g/dL (31-37) Red Cell Distribution Width 14.2 % (11.5-14.5) Platelet Count 461 x10^3/uL (140-400) H Neutrophils (%) (Auto) 86 % (31-73) H Lymphocytes (%) (Auto) 11 % (24-48) L Monocytes (%) (Auto) 3 % (0-9) Eosinophils (%) (Auto) 0 % (0-3) Basophils (%) (Auto) 1 % (0-3) Neutrophils # (Auto) 11.8 x10^3/uL (1.8-7.7) H Lymphocytes # (Auto) 1.5 x10^3/uL (1.0-4.8) Monocytes # (Auto) 0.4 x10^3/uL (0.0-1.1) Eosinophils # (Auto) 0.0 x10^3/uL (0.0-0.7) Basophils # (Auto) 0.1 x10^3/uL (0.0-0.2) Sodium Level 142 mmol/L (136-145) Potassium Level 4.4 mmol/L (3.5-5.1) Chloride Level 102 mmol/L (98-107) Carbon Dioxide Level 28 mmol/L (21-32) Anion Gap 12 (6-14) Blood Urea Nitrogen 26 mg/dL (7-20) H Creatinine 1.1 mg/dL (0.6-1.0) H Estimated GFR (Cockcroft-Gault) 49.7 BUN/Creatinine Ratio 24 (6-20) H Glucose Level 104 mg/dL (70-99) H Calcium Level 10.2 mg/dL (8.5-10.1) H Total Bilirubin 0.4 mg/dL (0.2-1.0) Aspartate Amino Transferase (AST) 10 U/L (15-37) L Alanine Aminotransferase (ALT) 25 U/L (14-59) Alkaline Phosphatase 119 U/L (46-116) H Total Protein 8.0 g/dL (6.4-8.2) Albumin 4.5 g/dL (3.4-5.0) Albumin/Globulin Ratio 1.3 (1.0-1.7) Laboratory Tests 11/09/21 11:00 Laboratory Tests 11/09/21 11:00 EKG EKG [] Radiology/Procedures Radiology/Procedures [] Course & Med Decision Making Course & Med Decision Making I will check basic labs give her home Norvasc in addition to IV Ativan and Toradol and reassess to see if I can see you what her main presenting symptom to the emergency department today is. Looking through the records it appears that she has polycomplaints on all prior visits and she goes to other emergency departments as well for similar complaints. Patient appears to have calm down significantly after receiving Valium as she is now able to converse calmly. Her blood pressure improved to 157/75. Her other vital signs continue normal including a heart rate of 78. There is no signs of endorgan damage from her hypertension. Her white blood cell count is slightly elevated which I discussed with her and she says she has had no fevers chills cough rash headache neck stiffness or dysuria. She also has incidental findings on her CMP as well including mild hypercalcemia. I told her she needs to follow with her primary care provider for all incidental findings and she will likely need rechecks and possibly further testing. Patient will be discharged in stable condition with normal vital signs and told to return with any new worsening pain shortness of breath or other general concerns. Patient aware and agreeable with plan and verbalized understanding of the above instructions. Dragon Disclaimer Dragon Disclaimer This electronic medical record was generated, in whole or in part, using a voice recognition dictation system. Departure Departure Impression: Primary Impression: Anxiety Additional Impressions: Hypertension Leukocytosis Hypercalcemia Disposition: HOME / SELF CARE / HOMELESS Condition: STABLE Referrals: KELLY FOOTE MD (PCP) Patient Instructions: Anxiety and Panic Attacks, [id number] Problem Qualifiers MOE JOHNSON DO Nov 09, 2021 10:58
[2021-11-09] MEDS ORDERED: KETOROLAC 15 MG/ML VIAL. IVP ONE (11:00)
[2021-11-09] MEDS ORDERED: ONDANSETRON PF 4 MG/2 ML VIAL. IVP ONE (11:00)
[2021-11-09 11:12] LABS: BASO # 0.1 x10^3/uL (0.0-0.2); BASO % 1 % (0-3); EOS % 0 % (0-3); HEMATOCRIT 41.5 % (36.0-47.0); HEMOGLOBIN 13.4 g/dL (12.0-15.5); LYMPH # 1.5 x10^3/uL (1.0-4.8); LYMPH % 11 % (24-48); MEAN CORPUSCULAR HEMOGLOBIN 30 pg (25-35); MEAN CORPUSCULAR HGB CONC 32 g/dL (31-37); MEAN CORPUSCULAR VOLUME 93 fL (79-100); MONO # 0.4 x10^3/uL (0.0-1.1); MONO % 3 % (0-9); NEUT # 11.8 x10^3/uL (1.8-7.7); NEUT % 86 % (31-73); PLATELET COUNT 461 x10^3/uL (140-400); RED BLOOD COUNT 4.48 x10^6/uL (3.50-5.40); RED CELL DISTRIBUTION WIDTH 14.2 % (11.5-14.5); WHITE BLOOD COUNT 13.8 x10^3/uL (4.0-11.0)
[2021-11-09 11:22] LABS: CALCIUM 10.2 mg/dL (8.5-10.1); CREATININE 1.1 mg/dL (0.6-1.0); GFR 49.7; POTASSIUM 4.4 mmol/L (3.5-5.1)
[2021-11-09 11:28] LABS: ALBUMIN 4.5 g/dL (3.4-5.0); ALBUMIN/GLOBULIN RATIO 1.3 (1.0-1.7); TOTAL BILIRUBIN 0.4 mg/dL (0.2-1.0)
[2021-11-09 11:33] VITALS: BP 164/101
[2021-11-09] MEDS ORDERED: diazePAM 5 MG TABLET PO ONE (11:45)
== END 2021-11-09 12:56 | disposition home or self-care (01) ==
LOC: ER 10:37
DX: F41.9 Anxiety disorder, unspecified (principal); I10 Essential (primary) hypertension; D72.829 Elevated white blood cell count, unspecified; E83.52 Hypercalcemia; F31.9 Bipolar disorder, unspecified; F17.200 Nicotine dependence, unspecified, uncomplicated; Z20.822 Contact with and (suspected) exposure to COVID-19; Z91.041 Radiographic dye allergy status; Z88.5 Allergy status to narcotic agent; Z88.8 Allergy status to other drugs, medicaments and biological substances
CPT/HCPCS: 36415; 80053; 85025; 96374; 96375; 99284; J1885; J2405

== ENCOUNTER 2021-12-17 12:06 | Emergency (ER) | payer MEDICARE ==
[~2021-12-17] VITALS: Ht 162.6 cm; Wt 43.2 kg
[2021-12-17 12:27] VITALS: BP 174/76
[2021-12-17] MEDS ORDERED: diazePAM 2 MG TABLET PO ONE (13:30)
[2021-12-17] MEDS ORDERED: KETOROLAC 30 MG/ML VIAL. IM ONE (13:30)
--- NOTE | 2021-12-17 13:53 | PHYS DOC ---
Past Medical History Past Medical History: Anxiety, Bipolar Additional Past Medical Histor: PT WOULD NOT GIVE Past Surgical History: No Surgical History Additional Past Surgical Histo: UNKNOWN Smoking Status: Current Some Day Smoker Alcohol Use: None Drug Use: None General Adult EDM: Chief Complaint: MUSCLE SPASM/CRAMP HPI: HPI: Patient is a 66 year old female well-known to this emergency department who presents with left-sided muscle spasm of her neck. She states that it has been bothering her for about 3 days, and that it "will not let go." She is requesting Toradol and Valium, which is worked well for her in the past for similar complaints. Patient states that she is getting over costochondritis and is taking Tessalon Perles for a subacute cough. Patient has no other new complaints or acute concerns at this time. Review of Systems: Review of Systems: ROS negative or noncontributory except as mentioned in HPI. Heart Score: C/O Chest Pain: No Current Medications: Current Medications Medications (Trade) Dose Ordered Sig/Nate Route PRN Reason Start Time Stop Time Status Last Admin Dose Admin Diazepam (Valium) 2 mg 1X ONCE PO 12/17/21 13:30 12/17/21 13:31 DC 12/17/21 13:41 Ketorolac Tromethamine (Toradol) 10 mg 1X ONCE PO 12/17/21 14:00 12/17/21 14:01 DC 12/17/21 14:00 Allergies: Allergies: Allergies Coded Allergies Type Severity Reaction Last Updated Verified aripiprazole Allergy Intermediate UNKNOWN 11/09/21 Yes carbamazepine Allergy Intermediate UNKNOWN 11/09/21 Yes codeine Allergy Intermediate UNKNOWN 11/09/21 Yes duloxetine Allergy Intermediate UNKNOWN 11/09/21 Yes lithium Allergy Intermediate UNKNOWN 11/09/21 Yes quetiapine Allergy Intermediate UNKNOWN 11/09/21 Yes red dye Allergy Intermediate UNKNOWN 03/30/21 Yes venlafaxine Allergy Intermediate UNKNOWN 03/30/21 Yes Physical Exam: PE: Constitutional: Well developed, well nourished, no acute distress, non-toxic appearance. HENT: Normocephalic, atraumatic, bilateral external ears normal, nose normal. Eyes: PERRL, EOMI, conjunctiva normal, no discharge. Neck: Normal range of motion, left-sided low cervical/trapezius spasm ap preciated with overlying tenderness, no step-off, no midline tenderness. Skin: Warm, dry, no erythema, no rash. Back: No step-off, no bony tenderness, no paraspinal tenderness. Extremities: No tenderness, no cyanosis, no clubbing, ROM intact, no edema strength 5/5 and symmetrical in bilateral upper extremities, radial pulses intact. Neurologic: Alert and oriented x4, normal motor function, normal sensory function, no focal deficits noted. Current Patient Data: Vital Signs: Vital Signs Date Time Temp Pulse Resp B/P (MAP) Pulse Ox O2 Delivery O2 Flow Rate FiO2 12/17/21 12:27 98.0 83 20 174/76 (108) 97 Room Air 98.0 Course & Med Decision Making: Course & Med Decision Making Pertinent Labs and Imaging studies reviewed. (See chart for details) [email or web address] Disclaimer: [email or web address] Disclaimer: This electronic medical record was generated, in whole or in part, using a voice recognition dictation system. Departure Departure Impression: Primary Impression: Chronic neck pain Additional Impression: Cough Disposition: HOME / SELF CARE / HOMELESS Condition: IMPROVED Referrals: KELLY FOOTE MD (PCP) Patient Instructions: Muscle Cramps, [id number] Additional Instructions: EMERGENCY DEPARTMENT GENERAL DISCHARGE INSTRUCTIONS Thank you for coming to [facility] Emergency Department (ED) today and trusting us with you care. We trust that you had a positive expe rience in our Emergency Department. If you wish to speak to the department management, you may call the director at . YOUR FOLLOW UP INSTRUCTIONS ARE FOLLOWS: 1. Follow up with your primary care doctor. If you do not have a primary doct or, please ask for a resource list of physicians or clinics that may be able to assist you with follow up care. 2. The emergency provider has interpreted your imaging studies, if any were ordered. The radiology licensing specialist also reviewed them. If there is a change in the findings, you will be notified in 48 hours when at all possible. 3. If a lab test or culture has been done, your results will be reviewed and you will be notified if you need a change in treatment. 4. Follow instructions verbalized to you and refer to the printouts if needed. ADDITIONAL INSTRUCTIONS AND INFORMATION: 1. Your care today has been supervised by a physician who is specially trained in emergency care. Many problems require more than one evaluation for a complete diagnosis and treatment. We recommend that you schedule your follow up appointment as recommended to ensure complete treatment of you illness or injury. If you are unable to obtain follow up care and continue to have a problem, or if your condition worsens, we recommend that you return to the ED. 2. We are not able to safely determine your condition over the phone nor are we able to give sound medical advice over the phone. For these safety reasons, if you call for medical advice we will ask you to come to the ED for further evaluation. 3. If you have any questions regarding these discharge instructions please call the ED at . SAFETY INFORMATION: In the interest of safety, wellness, and injury prevention; we encourage you to wear your seat belt, if you smoke; quite smoking, and we encourage family to use a protective helmet for bicycling and other sporting events that present an increased risk for head injury. IF YOUR SYMPTOMS WORSEN OR NEW SYMPTOMS DEVELOP, OR YOU HAVE CONCERNS ABOUT YOUR CONDITION; OR IF YOUR CONDITION WORSENS WHILE YOU ARE WAITING FOR YOUR FOLLOW UP APPOINTMENT; EITHER CONTACT YOUR PRIMARY CARE DOCTOR, THE PHYSICIAN WHOSE NAME AND NUMBER YOU WERE GIVEN, OR RETURN TO THE ED IMMEDIATELY. MARKUS CRYSTAL December 17, 2021 13:53
[2021-12-17] MEDS ORDERED: KETOROLAC TROMETHAMINE 10 MG TABLET PO ONE ×2 (14:00)
== END 2021-12-17 14:00 | disposition home or self-care (01) ==
LOC: ER 12:06
DX: M54.2 Cervicalgia (principal); G89.29 Other chronic pain; R05.9 Cough, unspecified; F31.9 Bipolar disorder, unspecified; F17.200 Nicotine dependence, unspecified, uncomplicated; Z88.5 Allergy status to narcotic agent; Z91.041 Radiographic dye allergy status; Z88.8 Allergy status to other drugs, medicaments and biological substances
CPT/HCPCS: 99283